=== PATIENT | male | born 1960 | race Caucasian/White ===

== ENCOUNTER 2021-02-15 08:39 | Emergency (ER) | payer OTHER, BC ==
[~2021-02-15] VITALS: Ht 180.3 cm; Wt 95.8 kg
[2021-02-15 09:30] VITALS: BP 155/90
[2021-02-15] MEDS ORDERED: ISOVUE-370 76% 100ML VIAL As Ordered ONE (09:38)
[2021-02-15 09:41] LABS: BASO # 0.1 10^3/uL (0.0-0.2); BASO % 0.5 % (0.0-1.0); EOS # 0.1 10^3/uL (0.0-0.5); EOS % 1.2 % (0.0-3.0); HEMATOCRIT 50.1 % (42.0-52.0); HEMOGLOBIN 16.8 g/dl (13.5-17.5); LYMPH # 1.7 10^3/uL (1.5-5.0); LYMPH % 14.6 % (24.0-44.0); MEAN CORPUSCULAR HEMOGLOBIN 29.7 pg (27.0-33.0); MEAN CORPUSCULAR HGB CONC 33.5 g/dl (32.0-36.5); MEAN CORPUSCULAR VOLUME 88.5 fl (80.0-96.0); MONO # 0.8 10^3/uL (0.0-0.8); MONO % 6.9 % (2.0-8.0); PLATELET COUNT, AUTOMATED 259 10^3/uL (150-450); RED BLOOD COUNT 5.66 10^6/uL (4.30-6.10); WHITE BLOOD COUNT 11.9 10^3/uL (4.0-10.0)
[2021-02-15 10:14] LABS: ALBUMIN 3.7 GM/DL (3.2-5.2); ALT/SGPT 25 U/L (12-78); AMYLASE 43 U/L (25-115); BILIRUBIN,DIRECT < 0.1 MG/DL (0.0-0.2); BILIRUBIN,TOTAL 0.3 MG/DL (0.2-1.0); LIPASE 163 U/L (73-393); TOTAL PROTEIN 7.1 GM/DL (6.4-8.2)
[2021-02-15] MEDS ORDERED: NS 1,000 ML IV ONE (10:20)
[2021-02-15] MEDS ORDERED: ACETAMINOPHEN 325 MG TAB PO ONE (15:10)
[2021-02-15] MEDS ORDERED: IBUPROFEN 600MG TAB PO ONE (15:10)
== END 2021-02-15 15:30 | disposition home or self-care (01) ==
LOC: M ED 08:39
DX: S40.011A Contusion of right shoulder, initial encounter (principal); S29.012A Strain of muscle and tendon of back wall of thorax, initial encounter; S16.1XXA Strain of muscle, fascia and tendon at neck level, initial encounter; S09.90XA Unspecified injury of head, initial encounter; V49.49XA Driver injured in collision with other motor vehicles in traffic accident, initial encounter; Y92.410 Unspecified street and highway as the place of occurrence of the external cause
CPT/HCPCS: 36415; 70450; 71045; 71260; 72125; 72128; 72131; 72141; 73030; 74177; 80047; 80076; 82150; 83690; 85025; 86850; 86900; 86901; 93041; 94760; 99285; Q9967

== ENCOUNTER → 2021-06-23 | Outpatient (CLI) | payer OTHER, BC | LOC: M SOG 08:48 | PROVIDERS: ATTEND Orthopaedic Surgery | DX: M25.511 Pain in right shoulder (principal) ==

== ENCOUNTER → 2021-07-19 | Outpatient (CLI) | payer OTHER | LOC: M PLAIMG 06:34 | PROVIDERS: ATTEND Orthopaedic Surgery | DX: M25.511 Pain in right shoulder (principal) ==

== ENCOUNTER 2023-08-13 14:33 | Inpatient (IN) | payer BC, OTHER, SELFPAY ==
[~2023-08-13] VITALS: Ht 180.3 cm; Wt 93.7 kg
[2023-08-13 15:21] LABS: HEMATOCRIT 50.4 % (42.0-52.0); HEMOGLOBIN 17.1 g/dl (13.5-17.5); MEAN CORPUSCULAR HEMOGLOBIN 29.8 pg (27.0-33.0); MEAN CORPUSCULAR HGB CONC 33.9 g/dl (32.0-36.5); MEAN CORPUSCULAR VOLUME 87.8 fl (80.0-96.0); PLATELET COUNT, AUTOMATED 270 10^3/uL (150-450); RED BLOOD COUNT 5.74 10^6/uL (4.30-6.10); WHITE BLOOD COUNT 11.9 10^3/uL (4.0-10.0)
[2023-08-13 15:43] LABS: AMPHETAMINES LEVEL URINE NEGATIVE (NEGATIVE); BARBITURATES URINE NEGATIVE (NEGATIVE); BENZODIAZEPINES URINE NEGATIVE (NEGATIVE); CANNABINOIDS URINE NEGATIVE (NEGATIVE); COCAINE METABOLITE URINE NEGATIVE (NEGATIVE); METHADONE URINE NEGATIVE (NEGATIVE); OPIATES URINE NEGATIVE (NEGATIVE); PHENCYCLIDINE URINE NEGATIVE (NEGATIVE)
[2023-08-13 15:44] LABS: ETHYL ALCOHOL (ETHANOL) < 0.003 % (0.000-0.010)
[2023-08-13 15:46] LABS: ALBUMIN 4.3 G/DL (3.2-5.2); ALKALINE PHOSPHATASE 110 U/L (46-116); ALT/SGPT 21 U/L (7.0-40); AST/SGOT 13 U/L (<34); BILIRUBIN,DIRECT 0.2 MG/DL (<0.4); BILIRUBIN,TOTAL 0.5 MG/DL (0.3-1.2); BLOOD UREA NITROGEN 19 MG/DL (9-23); CALCIUM LEVEL 10.4 MG/DL (8.3-10.6); CARBON DIOXIDE LEVEL 24 MMOL/L (20-31); CHLORIDE LEVEL 110 MMOL/L (98-107); CREATININE FOR GFR 1.14 MG/DL (0.70-1.30); GLOMERULAR FILTRATION RATE > 60.0 (>49); GLUCOSE, FASTING 106 MG/DL (74-106); POTASSIUM SERUM 4.2 MMOL/L (3.5-5.1); SALICYLATE LEVEL < 3.0 MG/DL (<30); SODIUM LEVEL 141 MMOL/L (136-145); TOTAL PROTEIN 7.1 G/DL (5.7-8.2)
[2023-08-13 15:50] LABS: THYROID STIMULATING HORMONE 0.525 uIU/ML (0.55-4.78)
[2023-08-13] MEDS: DERMABOND TOPICAL SKIN ADHESIVE TOP ONE (16:32)
[2023-08-13] MEDS ORDERED: HOME MED LIST COMPLETE! XX SCH ×2 (20:40)
[2023-08-13] MEDS ORDERED: IBUPROFEN 400MG TAB PO PRN (21:20)
[2023-08-13] MEDS ORDERED: MAALOX 30 ML SUSP *UDC PO PRN (21:20)
[2023-08-13] MEDS ORDERED: diphenhydrAMINE 25MG CAP PO PRN (21:20)
[2023-08-13] MEDS ORDERED: ACETAMINOPHEN TAB 650MG DOSE (2X325MG) PO PRN (21:20)
[2023-08-13] MEDS ORDERED: MOM 30ML SUSPENSION UDC PO PRN (21:20)
[2023-08-13] MEDS ORDERED: traZODone 50 MG TAB PO PRN (21:20)
[2023-08-14 02:08] VITALS: BP 146/83; TEMP 97.5; O2SAT 98
[2023-08-14 06:20] VITALS: BP 146/73; TEMP 97.6; O2SAT 96
[2023-08-14 18:20] VITALS: BP 137/76; TEMP 98
[2023-08-15 06:26] VITALS: BP 138/74; TEMP 97.8; O2SAT 100
[2023-08-15 15:34] VITALS: BP 134/78; TEMP 97.3; O2SAT 98
[2023-08-16 06:18] VITALS: BP 111/59; TEMP 97; O2SAT 98
[2023-08-16] MEDS: ESCITALOPRAM OXALATE 10 MG TAB (LEXAPRO) PO SCH (12:18)
[2023-08-16 15:36] VITALS: BP 134/76; TEMP 97.7; O2SAT 97
[2023-08-17 06:20] VITALS: BP 127/76; TEMP 97.8; O2SAT 96
[2023-08-17 16:19] VITALS: BP 127/69; TEMP 97.8; O2SAT 97
[2023-08-18 05:56] VITALS: BP 144/85; TEMP 98.2; O2SAT 99
[2023-08-18 15:32] VITALS: BP 139/74; TEMP 97.5; O2SAT 96
[2023-08-19 07:00] VITALS: BP 140/77; TEMP 97.8; O2SAT 100
[2023-08-19] MEDS ORDERED: LEXA1TAB PO (09:31)
== END 2023-08-19 12:59 | disposition home or self-care (01) | DRG 754 ==
LOC: M ED 14:33 → M ED INP 21:17 → M PSY 22:06
PROVIDERS: ADMIT Student in an Organized Health Care Education/Training Program; ATTEND Student in an Organized Health Care Education/Training Program
DX: F32.A Depression, unspecified (principal); F41.9 Anxiety disorder, unspecified; F43.21 Adjustment disorder with depressed mood; F17.220 Nicotine dependence, chewing tobacco, uncomplicated; Z56.0 Unemployment, unspecified; Z91.048 Other nonmedicinal substance allergy status; Z65.3 Problems related to other legal circumstances